=== PATIENT | male | born 1960 | race Caucasian/White ===

== ENCOUNTER 2016-04-21 11:25 | Day surgery (SDC) | payer OTHER ==
[2016-04-21] MEDS ORDERED: METOPROLOL TARTRATE 25 MG TAB PO PRN (11:45)
[2016-04-21] MEDS ORDERED: INSULIN HUMAN REGULAR 1,000 UNITS/10 ML VIAL SQ PRN (11:45)
[2016-04-21] MEDS ORDERED: SODIUM CHLORID 0.9% 500 ML IV SCH (12:00)
[2016-04-21] MEDS ORDERED: LACTATED RINGER'S 1000 ML IV SCH (12:00)
[2016-04-21] MEDS ORDERED: ROPI0.5T PO (12:33)
[2016-04-21] MEDS ORDERED: CYAN1000P IM (12:33)
[2016-04-21] MEDS ORDERED: FLUT50SP EACH NARE (12:33)
[2016-04-21] MEDS ORDERED: [UNRECOGNIZED DRUG - CODE] TOPICAL (12:33)
[2016-04-21] MEDS ORDERED: VITA100064 PO (12:33)
[2016-04-21] MEDS ORDERED: LISI-515 PO (12:33)
[2016-04-21] MEDS ORDERED: ZYRT10CA PO (12:33)
[2016-04-21] MEDS ORDERED: ASPI81TA81 (12:33)
[2016-04-21] MEDS ORDERED: TEMA15CA PO (12:33)
--- NOTE | 2016-04-22 13:37 | EKG ---
Date Performed: 04/21/2016 Time Performed: 11:51:36 PTAGE: 55 years EKG: Sinus rhythm Right bundle branch block PVC Abnormal ECG NO PREVIOUS TRACING DOCTOR: Cristian Tovar Interpretating Date/Time 04/22/2016 13:35:04
--- NOTE | 2016-05-10 07:19 | CF ---
cc: NIURKA VERDUZCO M.D., JASON M.D. HOLT, JOHN B. MD DATE: 05/07/2016 PROCEDURE: Transesophageal echocardiogram. INDICATIONS: Mitral regurgitation. Assess for surgery. CONSENT: A full, informed consent was obtained prior to the procedure. The risks of , bleeding, perforation, aspiration, foreseen and unforeseen complications were reviewed. The patient fully appeared to understand the risks and was willing to proceed. PROCEDURAL STATEMENT: The patient was draped and prepped in the usual mannter. Anesthesia was given as per the Anesthesia Department, then the full TASHA performed. FINDINGS: The mitral valve was extremely floppy and there was evidence of severe eccentric mitral regurgitation. The aortic valve was mildly thickened. LV function was normal. The interventricular septum was intact. The left atrial appendage was free of thrombus. The tricuspid valve moved normally. The mitral valve moved normally. CONCLUSIONS: 1. Severe eccentric regurgitation of the mitral valve. 2. Mild thickening of the aortic valve. 3. Intact interventricular and interatrial septum. 4. Normal tricuspid valve. PLAN: Plan to do a mitral valve repair if the patient is agreeable. Niurka Verduzco MD, FRCP,[facility] /5:31 PM /7:06 AM
== END 2016-04-21 15:38 | disposition home or self-care (01) ==
LOC: HDOC 11:25 → HDIC 11:27 → HDOC 15:38
PROVIDERS: ATTEND Internal Medicine Cardiovascular Disease
DX: I34.0 Nonrheumatic mitral (valve) insufficiency (principal)
CPT/HCPCS: 93005; 93312; 93320; 93325